=== PATIENT | male | born 1940 | race Caucasian/White ===

== ENCOUNTER 2018-01-02 09:18 | Emergency (ER) | payer OTHER ==
[~2018-01-02] VITALS: Ht 170.2 cm; Wt 78.5 kg
[2018-01-02] MEDS ORDERED: ZANTAC300 MG (09:40)
[2018-01-02] MEDS ORDERED: ASPIR 8181 MG (09:40)
[2018-01-02] MEDS ORDERED: BETAMETHASONE D15 G2 (09:40)
[2018-01-02] MEDS ORDERED: AMLODIPINE BESYL5 MG (09:41)
[2018-01-02] MEDS ORDERED: TIROSINT13 MCG (09:41)
[2018-01-02] MEDS ORDERED: TOPROL XL50 M1 (09:42)
[2018-01-02] MEDS ORDERED: LIPITOR20 MG (09:42)
[2018-01-02] MEDS ORDERED: COZAAR100 MG (09:42)
[2018-01-02] MEDS ORDERED: TAMS0.4C (09:42)
[2018-01-02] MEDS ORDERED: PLAVIX75 MG (09:43)
[2018-01-02] MEDS ORDERED: MONTELUKAST SOD10 MG (09:43)
[2018-01-02] MEDS ORDERED: GLIPIZIDE5 MG (09:43)
[2018-01-02] MEDS ORDERED: KOMBIGLYZE XR1 EAC1 (09:43)
[2018-01-02] MEDS ORDERED: XANAX XR0.5 MG (09:44)
== END 2018-01-02 14:09 | disposition home or self-care (01) ==
LOC: ER 09:18
DX: J32.8 Other chronic sinusitis (principal); J11.1 Influenza due to unidentified influenza virus with other respiratory manifestations